=== PATIENT | female | born 1950 | race Asian ===

== ENCOUNTER 2018-04-14 17:17 | Outpatient (CLI) | payer MEDICARE, OTHER ==
--- NOTE | 2018-04-14 20:12 | RAD ---
TWO VIEWS OF THE CHEST: 04/14/18 HISTORY: Cough and pneumonia. FINDINGS: Two views of the chest show normal sized cardiomediastinal silhouette. There is no evidence of consol idation, mass, or pleural effusion. The bones are unremarkable. IMPRESSION: No evidence of acute cardiopulmonary disease. POS: C
== END 2018-04-14 17:18 | disposition home or self-care (01) ==
LOC: LABBT 17:17
PROVIDERS: ATTEND Internal Medicine
DX: J18.9 Pneumonia, unspecified organism (principal)
CPT/HCPCS: 71046

== ENCOUNTER 2018-05-18 11:03 | Outpatient (CLI) | payer MEDICARE, OTHER ==
--- NOTE | 2018-05-18 13:39 | ULT ---
RENAL SONOGRAM: HISTORY: Chronic renal insufficiency. FINDINGS: The right kidney is 9.4 cm. Cyst at the superior pole measures up to 3.2 cm. No hydronephrosis. The left kidney is 8.7 cm. Diffuse thinning of the cortex. Small cyst. No solid mass or hydronephr osis. The urinary bladder is decompressed. IMPRESSION: 1. Bilateral renal cysts. 2. No evidence of urinary tract obstruction or other acute abnormality. POS: RANJANA
== END 2018-05-18 11:04 | disposition home or self-care (01) ==
LOC: SCSULT 11:03
PROVIDERS: ATTEND Internal Medicine Nephrology
DX: I12.9 Hypertensive chronic kidney disease with stage 1 through stage 4 chronic kidney disease, or unspecified chronic kidney disease (principal); N18.2 Chronic kidney disease, stage 2 (mild); Q61.9 Cystic kidney disease, unspecified
CPT/HCPCS: 76770

== ENCOUNTER 2019-02-03 12:59 | Outpatient (CLI) | payer MEDICARE, OTHER ==
--- NOTE | 2019-02-03 13:32 | ULT ---
EXAM: Left lower extremity venous Doppler US HISTORY: left lower extremity edema and pain FINDINGS: Grayscale, color-flow, Doppler evaluation, spectral analysis of the left lower extremity venous struc tures is performed with 2-D imaging. The left common femoral, superficial femoral, popliteal, posterior tibial, proximal greater saphenous and profunda femoral veins are imaged. There is normal luminal compressibility, flow, and augmentation the visualized deep venous structures of the left lower extremity. IMPRESSION: No evidence of a deep vein thrombosis in the left lower extremity.
== END 2019-02-03 13:00 | disposition home or self-care (01) ==
LOC: BICULT 12:59
PROVIDERS: ATTEND Internal Medicine
DX: I80.3 Phlebitis and thrombophlebitis of lower extremities, unspecified (principal); M79.605 Pain in left leg

== ENCOUNTER 2019-04-13 06:27 | Outpatient (CLI) | payer MEDICARE, OTHER ==
[2019-04-13 10:57] LABS: #Eosinphils 0.4 thou/uL (0.0-0.7); #Lymphocytes 2.4 thou/uL (1.20-3.40); #Monocytes 0.7 thou/uL (0.11-0.59); #Neutrophils 4.4 thou/uL (1.40-6.50); %Basophils 0.6 % (0.0-1.0); %Lymphocytes 30.2 % (21.0-51.0); %Monocytes 8.7 % (0.0-10.0); %Neutrophils 55.6 % (42.0-75.0); Mean Corpuscular Hemoglobin 29.5 pg (27.0-31.0); Mean Corpuscular Volume 92.2 fL (78.0-98.0); Mean Platelet Volume 8.4 fL (7.4-10.4); Platelet Count 223 thou/uL (130-400); RBC Distribution Width 12.2 % (11.5-14.5); Red Blood Cell (RBC) Count 4.06 mill/uL (4.20-5.40); White Blood Cell (WBC) Count 7.9 thou/uL (4.8-10.8)
[2019-04-13 11:00] LABS: Prothrombin Time 12.9 SEC (12.0-14.7)
[2019-04-13 11:24] LABS: Anion Gap 12 mmol/L (10-20); BUN (Urea Nitrogen) 17 mg/dL (9.8-20.1); Calc. Creatinine Clearance 0 mL/min (70-130); Calcium 9.6 mg/dL (7.8-10.44); Carbon Dioxide 27 mmol/L (23-31); Chloride 103 mmol/L (98-107); Estimated GFR-MDRD 67; Glucose 86 mg/dL (80-115); Potassium 4.3 mmol/L (3.5-5.1); Sodium 138 mmol/L (136-145)
[2019-04-13 12:29] LABS: Bacteria/HPF 4+ HPF (None Seen); Bilirubin Negative (Negative); Blood, Urine Negative (Negative); Clarity Clear (Clear); Glucose, Urine (Dipstick) Normal (Negative); Leukocyte Negative Leu/uL (Negative); Nitrite Negative (Negative); Protein, Urine (Dipstick) Negative (Neg-Trace); RBC/HPF 0-3 HPF (0-3); Squamous Epithelial None Seen HPF (0-3); Urobilinogen Normal mg/dL (Less than 2); WBC/HPF 0-3 HPF (0-3)
--- NOTE | 2019-04-13 16:48 | EKG ---
Test Reason : Blood Pressure : / mmHG Vent. Rate : 051 BPM Atrial Rate : 051 BPM P-R Int : 214 ms QRS Dur : 082 ms QT Int : 430 ms P-R-T Axes : 064 076 048 degrees QTc Int : 396 ms Sinus bradycardia with 1st degree A-V block Low voltage QRS Nonspecific T wave abnormality Abnormal ECG Confirmed by AILEEN BONILLA ([id number]) on 04/13/2019 4:48:03 PM Referred By: RADHA Confirmed By:AILEEN BONILLA
== END 2019-04-13 06:28 | disposition home or self-care (01) ==
LOC: LABBT 06:27
PROVIDERS: ATTEND Orthopaedic Surgery
DX: Z01.818 Encounter for other preprocedural examination (principal); M17.12 Unilateral primary osteoarthritis, left knee
CPT/HCPCS: 80048; 81001; 85025; 85610; 87077; 87081; 87086; 87186; 93005; 93010

== ENCOUNTER 2020-03-26 10:12 | Outpatient (CLI) | payer MEDICARE, OTHER ==
--- NOTE | 2020-03-26 11:19 | ULT ---
Renal sonogram HISTORY: Chronic renal disease. FINDINGS: Right kidney measures up to 9.6 cm. No hydronephrosis. Cyst at the superior pole is 3.7 cm greatest diameter. No solid masses. Diffuse thinning of the cortex. Left kidney is 9.5 cm with mild diffuse cortical thinning. Lobular cyst along the lateral cortex show s posterior acoustic enhancement and now measures up to 3.3 cm greatest diameter. It has grown since the 2018 exam. No solid mass or hydronephrosis apparent. Urinary bladder is incompletely distended. IMPRESSION : Bilateral renal cysts. No evidence of urinary tract obstruction.
[2020-03-26 14:42] LABS: Anion Gap 12 mmol/L (10-20); BUN (Urea Nitrogen) 20 mg/dL (9.8-20.1); Calc. Creatinine Clearance 0 mL/min (70-130); Calcium 9.4 mg/dL (7.8-10.44); Carbon Dioxide 28 mmol/L (23-31); Chloride 104 mmol/L (98-107); Estimated GFR-MDRD 58; Glucose 100 mg/dL (83-110); Potassium 4.5 mmol/L (3.5-5.1); Sodium 139 mmol/L (136-145)
[2020-03-26 15:13] LABS: Creatinine, Urine 85.27 mg/dL (47-110)
== END 2020-03-26 10:13 | disposition home or self-care (01) ==
LOC: SCSULT 10:12
PROVIDERS: ATTEND Internal Medicine Nephrology
DX: I12.9 Hypertensive chronic kidney disease with stage 1 through stage 4 chronic kidney disease, or unspecified chronic kidney disease (principal); N18.30 Chronic kidney disease, stage 3 unspecified; N28.1 Cyst of kidney, acquired
CPT/HCPCS: 36415; 76770; 80048; 82570; 84156

== ENCOUNTER 2020-12-05 12:53 | Outpatient (CLI) | payer MEDICARE, OTHER ==
[2020-12-05 14:48] LABS: Bilirubin Neg (Negative); Blood, Urine 10 (Negative); Clarity Slightly Cloudy (Clear); Glucose, Urine (Dipstick) Normal (Negative); Ketone, Urine Negative (Negative); Leukocyte 500 (Negative); Nitrite Negative (Negative); Protein, Urine (Dipstick) Negative (Neg-Trace); Urobilinogen Normal mg/dL (Less than 2)
[2020-12-05 14:53] LABS: INR-International Normal Ratio 0.9; Prothrombin Time 10.5 sec (9.5-12.1)
[2020-12-05 15:07] LABS: #Eosinphils 0.3 10x3/uL (0.0-0.5); #Monocytes 0.6 10x3/uL (0.0-1.1); #Neutrophils 4.7 10x3/uL (1.5-8.4); %Basophils 0.5 % (0.0-2.0); %Eosinophils 3.4 % (0.0-6.0); %Lymphocytes 29.4 % (18.0-47.0); %Monocytes 7.6 % (0.0-10.0); %Neutrophils 58.5 % (40.0-75.0); Hemoglobin 11.7 g/dL (12.0-15.5); Mean Corpuscular HGB CONC 31.5 g/dL (32.0-36.0); Mean Corpuscular Hemoglobin 28.6 pg (27.0-33.0); Mean Platelet Volume 10.9 fl (7.4-10.4); Platelet Count 256 10x3/uL (150-450); RBC Distribution Width 13.7 % (11.5-14.5); Red Blood Cell (RBC) Count 4.09 10x6/uL (3.90-5.03); White Blood Cell (WBC) Count 8.1 10x3/uL (3.5-10.5)
[2020-12-05 15:11] LABS: Anion Gap 11 mmol/L (10-20); BUN (Urea Nitrogen) 18 mg/dL (9.8-20.1); Calc. Creatinine Clearance 0 mL/min (70-130); Calcium 9.9 mg/dL (7.8-10.44); Carbon Dioxide 26 mmol/L (23-31); Chloride 104 mmol/L (98-107); Glucose 93 mg/dL (83-110); Potassium 4.4 mmol/L (3.5-5.1); Sodium 137 mmol/L (136-145)
[2020-12-05 15:37] LABS: Bacteria/HPF 4+ HPF (None Seen); RBC/HPF 0-3 HPF (0-3); WBC/HPF Greater than 50 HPF (0-3)
== END 2020-12-05 12:54 | disposition home or self-care (01) ==
LOC: LABBT 12:53
PROVIDERS: ATTEND Orthopaedic Surgery
DX: Z01.818 Encounter for other preprocedural examination (principal); M17.12 Unilateral primary osteoarthritis, left knee
CPT/HCPCS: 80048; 81001; 85025; 85610; 87081; 93005; 93010

== ENCOUNTER 2020-12-10 08:00 | Inpatient (IN) | payer MEDICARE, OTHER ==
[2020-12-10] MEDS ORDERED: Tranexamic Acid 1,000 MG/10 ML VIAL ONE (10:26)
[2020-12-10] MEDS ORDERED: Fentanyl 100 MCG/2 ML VIAL ONE ×4 (10:26→13:46)
[2020-12-10] MEDS ORDERED: Midazolam HCl 2 mg/2 ml Vial ONE (10:26)
[2020-12-10] MEDS ORDERED: Sodium Chloride 0.9% 100 ML ONE (10:31)
[2020-12-10] MEDS ORDERED: Promethazine HCl 25 MG/ML VIAL IM PRN ×3 (10:45→12:26)
[2020-12-10] MEDS ORDERED: Ondansetron PF 4 MG/2 ML Vial IVP PRN ×2 (10:45→11:30)
[2020-12-10] MEDS ORDERED: Vancomycin 1.5 GRAM/300 ML BAG 1.5 GM in Premix Bag 1 BAG IVPB SCH (10:45)
[2020-12-10] MEDS ORDERED: HYDROcodone/Acetaminophen 10/325 mg Tablet PO PRN ×3 (10:45→11:30)
[2020-12-10] MEDS ORDERED: Acetaminophen 325 MG TAB PO PRN (10:45)
[2020-12-10] MEDS ORDERED: Fentanyl 100 MCG/2 ML VIAL SLOW IVP PRN ×2 (10:45→11:19)
[2020-12-10] MEDS ORDERED: diphenhydrAMINE 25 MG CAP PO PRN (10:45)
[2020-12-10] MEDS ORDERED: Zolpidem Tartrate 5 MG TAB PO PRN ×2 (10:45→11:30)
[2020-12-10] MEDS ORDERED: Ropivacaine 2% HCl/PF (20 MG/10 ML VIAL) ONE (11:22)
[2020-12-10] MEDS ORDERED: Dexamethasone 20 MG/5 ML VIAL ONE (11:22)
[2020-12-10] MEDS ORDERED: Ondansetron PF 4 MG/2 ML Vial ONE (11:22)
[2020-12-10] MEDS ORDERED: Bupivacaine HCl 0.5%/Epinephrine 1:200,000/PF 30 ml Vial ONE (11:22)
[2020-12-10] MEDS ORDERED: PROPOFOL 200 MG/20 ML VIAL ONE (11:22)
[2020-12-10] MEDS ORDERED: ePHEDrine Sulfate 50 MG/10 ML VIAL ONE (11:22)
[2020-12-10] MEDS ORDERED: Glycopyrrolate 0.2 MG/ML 5 ML SYRINGE ONE (11:22)
[2020-12-10] MEDS ORDERED: Ropivacaine 0.2% 550 ML 550 ML NERVE BLCK SCH (11:30)
[2020-12-10] MEDS ORDERED: traMADol HCl 50 MG TAB PO PRN ×2 (11:30)
[2020-12-10] MEDS ORDERED: Promethazine HCl 25 MG/ML VIAL IVPB PRN (12:26)
[2020-12-10] MEDS ORDERED: Ondansetron HCl/PF 4 MG/2 ML Vial IVP PRN (12:26)
[2020-12-10] MEDS ORDERED: HYDROcodone/Acetaminophen 10/325 mg Tablet ONE (15:47)
[2020-12-10] MEDS: HYDROcodone/Acetaminophen 10/325 mg Tablet PO PRN (15:50)
[2020-12-10] MEDS: Sodium Chloride 0.9% 1,000 ML IV SCH (16:21)
[2020-12-10] MEDS: Ketorolac Tromethamine 30 MG/ML VIAL IVP SCH ×2 (16:22→17:57)
[2020-12-10 16:34] VITALS: BMI 44.9
[2020-12-10] MEDS: metFORMIN 500 MG TAB PO SCH (17:49)
[2020-12-10] MEDS: CEFAZOLIN 2 GM in Premix Bag 1 BAG IVPB SCH (18:01)
[2020-12-10] MEDS: Nadolol 40 MG TAB PO SCH (20:43)
[2020-12-10] MEDS: Aspirin 81 mg Enteric Coated Tablet PO SCH (20:44)
[2020-12-10] MEDS: Flecainide 50 MG TAB PO SCH (20:44)
[2020-12-10] MEDS: Atorvastatin Calcium 10 MG TAB PO SCH (20:44)
[2020-12-11] MEDS: Sodium Chloride 0.9% 1,000 ML IV SCH ×3 (00:39→15:07)
[2020-12-11] MEDS: Ketorolac Tromethamine 30 MG/ML VIAL IVP SCH ×5 (00:40→23:43)
[2020-12-11] MEDS: CEFAZOLIN 2 GM in Premix Bag 1 BAG IVPB SCH (04:30)
[2020-12-11 06:44] LABS: Hemoglobin 10.5 g/dL (12.0-16.0); Mean Corpuscular Hemoglobin 31.1 pg (27.0-31.0); Mean Corpuscular Volume 91.7 fL (78.0-98.0); Mean Platelet Volume 8.7 fL (7.4-10.4); Platelet Count 186 thou/uL (130-400); RBC Distribution Width 12.3 % (11.5-14.5); Red Blood Cell (RBC) Count 3.38 mill/uL (4.20-5.40)
[2020-12-11] MEDS ORDERED: Aspirin 325 MG TAB PO SCH (09:00)
[2020-12-11] MEDS: Nadolol 40 MG TAB PO SCH ×2 (09:28→21:08)
[2020-12-11] MEDS: Flecainide 50 MG TAB PO SCH ×2 (09:28→21:07)
[2020-12-11] MEDS: Multivitamin W/ Minerals 1 TAB PO SCH (09:29)
[2020-12-11] MEDS: metFORMIN 500 MG TAB PO SCH ×2 (09:29→17:34)
[2020-12-11] MEDS: Senokot S 8.6-50 MG TAB PO SCH ×2 (09:29→21:07)
[2020-12-11] MEDS: Aspirin 81 mg Enteric Coated Tablet PO SCH ×2 (09:29→21:08)
[2020-12-11] MEDS: Ferrous Gluconate 324 MG TAB PO SCH ×2 (09:29→17:34)
[2020-12-11] MEDS ORDERED: Dextrose 50% Abboject 50 ML SYRINGE SLOW IVP PRN (11:58)
[2020-12-11] MEDS ORDERED: Dextrose 5% in Water 1,000 ML IV PRN (11:58)
[2020-12-11] MEDS ORDERED: HumaLOG 300 UNITS/3 ML VIAL SC PRN (11:58)
[2020-12-11] MEDS: Atorvastatin Calcium 10 MG TAB PO SCH (21:07)
[2020-12-11] MEDS: HYDROcodone/Acetaminophen 10/325 mg Tablet PO PRN (23:47)
[2020-12-12] MEDS: Sodium Chloride 0.9% 1,000 ML IV SCH ×2 (00:28→12:30)
[2020-12-12] MEDS: Ketorolac Tromethamine 30 MG/ML VIAL IVP SCH (06:05)
[2020-12-12 06:07] LABS: Hemoglobin 9.7 g/dL (12.0-16.0); Mean Corpuscular HGB CONC 34.6 g/dL (32.0-36.0); Mean Corpuscular Hemoglobin 31.7 pg (27.0-31.0); Mean Corpuscular Volume 91.6 fL (78.0-98.0); Mean Platelet Volume 9.3 fL (7.4-10.4); Platelet Count 163 thou/uL (130-400); RBC Distribution Width 12.6 % (11.5-14.5); Red Blood Cell (RBC) Count 3.07 mill/uL (4.20-5.40); White Blood Cell (WBC) Count 11.8 thou/uL (4.8-10.8)
[2020-12-12] MEDS: Aspirin 81 mg Enteric Coated Tablet PO SCH ×2 (08:41→21:35)
[2020-12-12] MEDS: metFORMIN 500 MG TAB PO SCH ×2 (08:41→17:52)
[2020-12-12] MEDS: Ferrous Gluconate 324 MG TAB PO SCH ×2 (08:41→17:52)
[2020-12-12] MEDS: Senokot S 8.6-50 MG TAB PO SCH ×2 (08:42→19:50)
[2020-12-12] MEDS: Multivitamin W/ Minerals 1 TAB PO SCH (08:42)
[2020-12-12] MEDS: Flecainide 50 MG TAB PO SCH ×2 (08:47→21:35)
[2020-12-12] MEDS: Nadolol 40 MG TAB PO SCH ×2 (08:47→21:43)
[2020-12-12] MEDS ORDERED: Iopamidol-370 76% 500 ML 1 ML ONE (09:36)
[2020-12-12] MEDS ORDERED: hydrALAZINE 20 MG/ML VIAL ONE (15:55)
[2020-12-12] MEDS ORDERED: Morphine 4 MG/ML VIAL ONE (15:55)
[2020-12-12] MEDS ORDERED: hydrALAZINE 20 MG/ML VIAL SLOW IVP PRN (15:55)
[2020-12-12] MEDS: Nitroglycerin 0.4 MG TAB (25 Tab Bottle) ONE ×2 (15:56→16:13)
[2020-12-12 16:38] LABS: ALT (SGPT) 9 U/L (8-55); AST (SGOT) 25 U/L (5-34); Albumin 3.5 g/dL (3.4-4.8); Alkaline Phosphatase 74 U/L (40-110); Anion Gap 16 mmol/L (10-20); BUN (Urea Nitrogen) 23 mg/dL (9.8-20.1); Bilirubin, Total 0.6 mg/dL (0.2-1.2); Calc. Creatinine Clearance 95 mL/min (70-130); Calcium 9.3 mg/dL (7.8-10.44); Carbon Dioxide 17 mmol/L (23-31); Chloride 106 mmol/L (98-107); Globulin 4.5 g/dL (2.4-3.5); Glucose 109 mg/dL (83-110); Potassium 4.3 mmol/L (3.5-5.1); Sodium 135 mmol/L (136-145)
[2020-12-12 16:42] LABS: Troponin I Less than 0.010 ng/mL (< 0.028)
[2020-12-12] MEDS: Atorvastatin Calcium 10 MG TAB PO SCH (21:35)
[2020-12-12 22:45] LABS: Troponin I Less than 0.010 ng/mL (< 0.028)
[2020-12-13] MEDS: HYDROcodone/Acetaminophen 10/325 mg Tablet PO PRN ×2 (03:18→12:10)
[2020-12-13 04:57] LABS: Hemoglobin 9.7 g/dL (12.0-16.0); Mean Corpuscular HGB CONC 34.5 g/dL (32.0-36.0); Mean Corpuscular Hemoglobin 31.4 pg (27.0-31.0); Mean Corpuscular Volume 90.8 fL (78.0-98.0); Mean Platelet Volume 8.6 fL (7.4-10.4); Platelet Count 190 thou/uL (130-400); RBC Distribution Width 12.5 % (11.5-14.5); White Blood Cell (WBC) Count 12.3 thou/uL (4.8-10.8)
[2020-12-13] MEDS: Sodium Chloride 0.9% 1,000 ML IV SCH ×2 (06:47→09:10)
[2020-12-13] MEDS ORDERED: Cefdinir 300 MG CAP PO SCH (09:00)
[2020-12-13] MEDS: metFORMIN 500 MG TAB PO SCH (09:10)
[2020-12-13] MEDS: Ferrous Gluconate 324 MG TAB PO SCH (09:10)
[2020-12-13] MEDS: Aspirin 81 mg Enteric Coated Tablet PO SCH (09:10)
[2020-12-13] MEDS: Senokot S 8.6-50 MG TAB PO SCH (09:11)
[2020-12-13] MEDS: Nadolol 40 MG TAB PO SCH (09:11)
[2020-12-13] MEDS: Flecainide 50 MG TAB PO SCH (09:11)
[2020-12-13] MEDS: Multivitamin W/ Minerals 1 TAB PO SCH (09:11)
[2020-12-13 16:49] VITALS: BP 147/69; TEMP 98.4
== END 2020-12-13 17:45 | disposition swing bed (61) | DRG 469 ==
LOC: SDC 08:24 → SJJU 10:45 → SDC 12-11 08:53 → INTOOBSV 12-11 08:56 → UNDOADMOB 12-11 08:56 → SJJU 12-11 08:56 → 2SW 12-12 16:35
PROVIDERS: ADMIT Orthopaedic Surgery; ATTEND Orthopaedic Surgery
PROC: 0SRD069 Replacement of Left Knee Joint with Oxidized Zirconium on Polyethylene Synthetic Substitute, Cemented, Open Approach (ICD-10-PCS; principal; 2020-12-10)
DX: M17.12 Unilateral primary osteoarthritis, left knee (principal); J18.9 Pneumonia, unspecified organism; D64.9 Anemia, unspecified; I10 Essential (primary) hypertension; K21.9 Gastro-esophageal reflux disease without esophagitis; E78.5 Hyperlipidemia, unspecified; E11.9 Type 2 diabetes mellitus without complications; E66.01 Morbid (severe) obesity due to excess calories; I16.0 Hypertensive urgency; Z68.42 Body mass index [BMI] 45.0-49.9, adult; Z82.49 Family history of ischemic heart disease and other diseases of the circulatory system
CPT/HCPCS: 36415; 36416; 71275; 80053; 84484; 85027; 93005; 93010; A4306; C1713; C1776; J0360; J0690; J1100; J1885; J2250; J2270; J2405; J2704; J2795; J3010; J3370; J3490

== ENCOUNTER 2020-12-15 14:41 | Outpatient (CLI) | payer MEDICARE, OTHER | END 2020-12-15 14:42 | disposition home or self-care (01) | LOC: ULT 14:41 | PROVIDERS: ATTEND Family Medicine | DX: M79.605 Pain in left leg (principal); R60.0 Localized edema | CPT/HCPCS: 93923 ==

== ENCOUNTER 2025-03-09 08:29 | Outpatient (CLI) | payer MEDICARE | END 2025-03-09 08:30 | disposition home or self-care (01) | LOC: BICMAMMO 08:29 | PROVIDERS: ATTEND Family Medicine | DX: Z12.31 Encounter for screening mammogram for malignant neoplasm of breast (principal); Z78.0 Asymptomatic menopausal state; M85.851 Other specified disorders of bone density and structure, right thigh; M85.852 Other specified disorders of bone density and structure, left thigh; Z80.3 Family history of malignant neoplasm of breast | CPT/HCPCS: 77063; 77067; 77080 ==